=== PATIENT | female | born 1995 | race Two or more races ===

== ENCOUNTER 2019-09-07 10:01 | Emergency (ER) | payer MEDICAID ==
[~2019-09-07] VITALS: Ht 167.6 cm; Wt 66.0 kg
[2019-09-07] MEDS ORDERED: TETANUS, DIPHTHERIA, PERTUSSIS VAC/PF 0.5ML (>7YR OLD) IM ONE (10:30)
[2019-09-07] MEDS ORDERED: ACETAMINOPHEN 500MG TABLET PO ONE (10:30)
[2019-09-07] MEDS ORDERED: LIDOCAINE 1%/EPI 1:100,000 10 ML VIAL IJ ONE (10:30)
[2019-09-07] MEDS ORDERED: BACITRACIN ZINC OINT UDPKT TOP ONE (10:30)
[2019-09-07 11:53] VITALS: BP 145/94
== END 2019-09-07 12:02 | disposition left against medical advice (07) ==
LOC: ER 10:01
DX: S01.81XA Laceration without foreign body of other part of head, initial encounter (principal); S09.8XXA Other specified injuries of head, initial encounter; Y08.89XA Assault by other specified means, initial encounter; Y93.9 Activity, unspecified; Y92.9 Unspecified place or not applicable
CPT/HCPCS: 70486; 90471; 90715; 99284; J3490